=== PATIENT | male | born 1930 | race Caucasian/White ===

== ENCOUNTER 2016-11-29 17:17 | Emergency (ER) | payer OTHER ==
[~2016-11-29] VITALS: Ht 170.2 cm; Wt 84.1 kg
[~2016-11-29 17:17] MED LIST: ATORVASTATIN CA40 MG PO; BUPROPION XL150 MG PO; BUSPAR15 MG PO; BUSPAR5 MG PO; BUSPIRONE HCL15 MG; BUSPIRONE HCL15 MG PO; CALAN SR,COVER240 MG PO; CIPRO HC OTIC S10 ML; CIPRO250 MG PO; CLINDAMYCIN HC150 MG; DIOVAN160 MG PO; EFFEXOR XR150 MG; EFFEXOR XR150 MG PO; EFFEXOR75 MG PO; FLUOXETINE HCL40 MG PO; HYDROCODONE-AP1 EAC8 PO; LIPITOR40 MG PO; LOSARTAN POTASS50 MG PO; NITROSTAT0.4 MG SL; OMEPRAZOLE40 M1 PO; PROTONIX40 MG PO; VALSARTAN320 MG PO; VENLAFAXINE HC150 M1 PO; VERAPAMIL HCL240 MG PO; VERAPAMIL HCL360 MG PO; VESICARE10 MG; VESICARE10 MG PO; [UNRECOGNIZED DRUG - OTHER]; vesicare
[2016-11-29 20:48] VITALS: BP 172/84
== END 2016-11-29 20:49 | disposition home or self-care (01) ==
LOC: EME 17:17
DX: S01.111A Laceration without foreign body of right eyelid and periocular area, initial encounter (principal); S51.011A Laceration without foreign body of right elbow, initial encounter; W18.30XA Fall on same level, unspecified, initial encounter; I10 Essential (primary) hypertension; E11.9 Type 2 diabetes mellitus without complications; I25.2 Old myocardial infarction
CPT/HCPCS: 70450; 99281; 99284